=== PATIENT | male | born 1930 | race Caucasian/White ===

== ENCOUNTER 2019-08-04 14:59 | Inpatient (IN) ==
[2019-08-04] MEDS ORDERED: Morphine Sulfate Oral CONC 10 MG/0.5 ML ORAL.SYG SL PRN (15:52)
[2019-08-04] MEDS ORDERED: *HR* LORazepam 0.5 MG TABLET PO PRN (16:02)
[2019-08-04] MEDS ORDERED: Acetaminophen 650 MG RECTAL SUPP RC PRN (16:11)
[2019-08-04] MEDS ORDERED: Hyoscyamine SL 0.125 MG TAB.SUBL SL PRN (16:14)
[2019-08-04] MEDS: *HR* Metformin 500 MG TABLET PO SCH (17:41)
[2019-08-04] MEDS: Nicotine 21 MG PATCH.TD24 TD SCH (20:56)
[2019-08-04] MEDS: Melatonin 3 MG TABLET PO PRN (21:08)
[2019-08-04] MEDS: Apixaban 5 MG TABLET PO SCH (21:09)
[2019-08-05] MEDS: amLODIPine 5 MG TABLET PO SCH (08:55)
[2019-08-05] MEDS: *HR* Metformin 500 MG TABLET PO SCH ×2 (08:55→17:04)
[2019-08-05] MEDS: Apixaban 5 MG TABLET PO SCH ×2 (08:55→21:00)
[2019-08-05] MEDS: Nicotine 21 MG PATCH.TD24 TD SCH ×2 (08:55→21:01)
[2019-08-05] MEDS: Furosemide 20 MG TABLET PO SCH (08:56)
[2019-08-05] MEDS: Melatonin 3 MG TABLET PO PRN (21:01)
[2019-08-06] MEDS: *HR* Metformin 500 MG TABLET PO SCH ×2 (09:41→17:52)
[2019-08-06] MEDS: amLODIPine 5 MG TABLET PO SCH (09:41)
[2019-08-06] MEDS: Apixaban 5 MG TABLET PO SCH ×2 (09:41→19:42)
[2019-08-06] MEDS: Furosemide 20 MG TABLET PO SCH (09:41)
[2019-08-06] MEDS: Nicotine 21 MG PATCH.TD24 TD SCH (19:42)
[2019-08-06] MEDS: Melatonin 3 MG TABLET PO PRN (19:42)
[2019-08-06] MEDS ORDERED: Haloperidol Lactate 5 MG/ML VIAL IM ONE (22:15)
[2019-08-07 06:33] VITALS: BP 129/75
[2019-08-07] MEDS: *HR* Metformin 500 MG TABLET PO SCH (10:16)
[2019-08-07] MEDS: Furosemide 20 MG TABLET PO SCH (10:16)
[2019-08-07] MEDS: Apixaban 5 MG TABLET PO SCH (10:16)
[2019-08-07] MEDS: amLODIPine 5 MG TABLET PO SCH (10:16)
== END 2019-08-07 11:50 | disposition hospice, home (50) | DRG 195 ==
LOC: INPPIK 14:59
PROVIDERS: ADMIT Family Medicine; ATTEND Family Medicine